=== PATIENT | female | born 1925 | race Caucasian/White ===

== ENCOUNTER 2016-06-23 20:40 | Emergency (ER) | payer MEDICARE, OTHER ==
[~2016-06-23] VITALS: Ht 162.6 cm; Wt 72.7 kg
[2016-06-23 21:01] VITALS: BP 165/130; PULSE 98; RESP 18; O2SAT 96
--- NOTE | 2016-06-23 21:02 | ED.REPORT ---
HPI-Abd Pain F 40 and Over Date of Service Jun 23, 2016 ED Provider: Chavez Landry MD Patient is a 89 year old female with a history of paroxysmal atrial fibrillation and Graves Disease who presents to the ED complaining of vomiting and diarrhea since 9:30pm last night. She reports some mild associated abdominal discomfort. The patient states that her symptoms have not improved over the course of the day and may even have gotten worse. She vomited enroute to the ED. Her daughter states that the patient has felt unwell for several days prior to onset. There is no one else at her assisted living facility that is currently sick with similar symptoms. The patient reports prior hysterectomy , cholecystectomy, and appendectomy. She reports diaphoresis but denies a fever , chills hematemesis, bloody or tarry stools. Nursing Notes Stated Complaint: NAUSEA, ABDOMINAL PAIN Chief Complaint: Female Abdominal Pain Nursing Notes Reviewed: Yes Allergies: Coded Allergies: codeine (Verified Allergy, Unknown, 06/23/16) Uncoded Allergies: PENICILLIN (Allergy, Unknown, 06/23/16) Scheduled PRN Ondansetron ODT (Ondansetron ODT) 8 Mg Tab.rapdis 8 MG PO QID PRN PRN For Nausea General Time Seen by MD: 21:02 Chief Complaint Diarrhea moderate, Vomiting moderate Hx Obtained From: Patient, Daughter, Other family... Arrived By: Walk-in Sudden in Onset?: No Onset Occurred: 21 - 23 hours ago Symptom Duration: Since onset Progression since Onset: Gradually worsening Location: : Diffuse Quality: Painful Severity: Current: Mild Severity: Maximum: Moderate Recent Healthcare: No recent doctor visit, No recent hospitalization Similar Sx Previous: No Past Medical History Past Medical History Notes: Current Medications: per patient Amiodarone and Metoprolol Past Medical History Paroxysmal Atrial fibrillation Graves Disease Past Surgical History thyroidectomy Reports: Appendectomy, Cholecystectomy, Hysterectomy Smoking History Unknown if Ever Smoker Social History Other Social History: Good social support, Lives in [facility], Local resident Ambulatory Status Independent Review of Systems Constitutional: Denies: Fever GI: Reports: Abdominal pain, Diarrhea, Nausea, Vomiting, Denies: Bloody/tarry stool, Hematemesis Complete sys rev & neg: except as marked. Skin: Reports Diaphoresis Physical Exam Vital Signs Vital Signs (First) Date Time Temp Pulse Resp B/P Pulse Ox O2 Delivery O2 Flow Rate FiO2 06/23/16 21:01 36.5 98 18 165/130 96 Room Air Initial VS: Reviewed Head / Eyes: Atraumatic, Normocephalic, PERRL ENT: Mucous membranes moist, Conjunctiva normal, No scleral icterus Neck: Supple Extremities: Vascular intact, Neuro intact, No swelling, No tenderness Skin: Warm, Dry, No cyanosis Neurologic: Alert, Oriented, Nonfocal Psychiatric: Mood/affect normal, Behavior normal, Normal thought content General/Constitutional: Awake, Alert, No acute distress Respiratory / Chest: Breath sounds NL, Breath sounds = bilat, No respiratory distress, No rales, No rhonchi, No wheezing Cardiovascular: Heart rate NL, Regular rhythm, Heart sounds NL, No murmurs Abdomen: Soft, BS normoactive Tenderness/Guarding/Rebound: Positive: Tender diffuse Back: No midline vertebral tend, No CVA tenderness Periorbital: Positive: Proptosis L, Proptosis R Interpretation & Diagnostics Lab Results Interpretation Result Diagram: 06/23/16213106/23/162131 Test 06/23/16 21:32 06/23/16 23:50 White Blood Count 4.8th/mm3 (3.8-10.1) Red Blood Count 4.84mil/mm3 (3.90-5.20) Hemoglobin 15.0g/dL (12.0-15.6) Hematocrit 45.4% (35.0-46.0) Mean Corpuscular Volume 93.8fL (81-100) Mean Corpuscular Hemoglobin 31.0pg (27.0-35.0) Mean Corpuscular Hemoglobin Concent 33.0% (32.0-37.0) Red Cell Distribution Width 14.4% (12.3-15.4) Platelet Count 96bil/L (150-400) Neutrophils (%) (Auto) 87.0% (40-74) Lymphocytes (%) (Auto) 6.8% (14-46) Monocytes (%) (Auto) 5.6% (4-12) Eosinophils (%) (Auto) 0.2% (0-5) Basophils (%) (Auto) 0.2% (0-3) Prothrombin Time 11.9sec (8.1-12.5) Prothromb Time International Ratio 1.11ratio Sodium Level 137mEq/L (134-144) Potassium Level 3.7mEq/L (3.5-5.2) Chloride Level 100mEq/L (97-108) Carbon Dioxide Level 20mmol/L (18-29) Blood Urea Nitrogen 17mg/dL (8-27) Creatinine 0.77mg/dL (0.57-1.00) Estimat Glomerular Filtration Rate 101mL/min (>59) Glucose Level 179mg/dL (60-99) Lactic Acid Level 2.0mmol/L (0.4-2.0) Calcium Level 8.9mg/dL (8.5-10.1) Magnesium Level 2.0mg/dL (1.6-2.6) Total Bilirubin 1.1mg/dL (0.0-1.2) Aspartate Amino Transf (AST/SGOT) 21U/L (0-50) Alanine Aminotransferase (ALT/SGPT) 15U/L (0-32) Alkaline Phosphatase 68U/L (25-165) Total Protein 6.8g/dL (6.4-8.4) Albumin 3.7g/dL (3.4-5.0) Lipase 22U/L (13-60) Digoxin Level 0.3nG/mL (0.9-2.0) Troponin T < 0.010ug/L (0.0-0.011) ECG Interpretation ECG Interpretation: Atrial fibrillation with RVR, Rate 137 RBBB Time: 21:22 Interpreted by: ED physician ECG Interpretation: Sinus rhythm, Rate 70 RBBB Time: 23:03 Interpreted by: ED physician CT Abd / Pelvis Interpretation CONCLUSION: Probable mild gastroenteritis and/or ileus, with fluid levels in the right and transverse colon and mild wall enhancement of the small bowel. Cirrhosis with splenomegaly and mild varices. Presumed hepatic and renal cysts. Status post cholecystectomy with mild dilated CBD, nonspecific, may reflect biliary ectasia. Radiologist: Rimma Rdz MD 06/23/2016 - 11:27:44 PM PDT Study type: Abdominal CT IV contrast Interpretation / Wet Read by: Interpret - Radiologist Re-Eval/Medical Decision Med Decision/Clinical Course 89-year-old presents with nausea and vomiting and diarrhea, stents or gastroenteritis. However, she is in atrial fibrillation with rapid ventricular response and right bundle branch block. She was treated with diltiazem, ultimately with conversion back to sinus rhythm. Troponins were negative 2. EKG still shows right bundle but is much improved and sinus without evidence of infarct. She is much better as far as her nausea after ondansetron. After. Of observation and rule out protocol, she is discharged home for follow-up with her PCP. Prompt return if worse. CT was done to evaluate for ischemic bowel disease in the setting of acute atrial fibrillation. No evidence of this was found. She appears to have gastroenteritis only. Discharged in stable condition. Re-Evaluation/Progress #1: Time of Eval: 22:05 Re-Evaluation/Progress Note: Rechecked the patient. Discussed her EKG findings and plan for CT scan. She was found to be in atrial fibrillation and will be given medication to reduce her rate. Re-Evaluation/Progress #2: Time of Eval: 00:48 Patient Status: Condition improved Re-Evaluation/Progress Note: Rechecked the patient. She has remained in normal sinus rhythm. Her CT scan showed gastroenteritis. Her repeat troponin was negative. Patient understands and agrees with the plan to be discharged home. Discharge instructions and follow-up discussed. All questions were addressed. Return to the ED warnings given. Counseled Regarding: Diagnosis, Lab results, Need for follow-up, When/why to return to ED Discharge & Departure Primary Impression: Atrial fibrillation with RVR Additional Impressions: Nausea and vomiting Vomiting type: unspecified Vomiting Intractability: non-intractable Qualified Code: R11.2 - Nausea with vomiting, unspecified Gastroenteritis Disposition: Home Discharge Condition All VS Reviewed: Yes Condition: Stable Patient Instructions: Atrial Fibrillation (ED), Gastroenteritis (ED) Additional Instructions: Return promptly if you have any chest pain, palpitations, or other new symptoms of concern. Zofran up to four times daily if needed for nausea. Begin with clear fluids such as Powerade or Gatorade, and advance your diet slowly as you tolerate. Progress through soups and simple starchy foods before returning to fats meats and milk. Referrals: Lex Ayoub MD Crit Care Except Billable Proc Time Spent: 30-74 minutes (thirty minutes) Services Performed: Patient management by me, Time spent at bedside, Reviewing test results, Reviewing imaging, Discussing patient care, Documentation in record, Time with fam/surrogate Scribe Attestation Portions of this note were transcribed by Kalyeigh Conn. I, Dr. Landry personally performed the history, physical exam and medical decision-making; I reviewed and confirmed the accuracy of the information in the transcribed note. Signed by: Ekta Allen, 06/24/2016 0052 copies to: Dereck Lira MD; Lex Ayoub MD, Christopher W MD Jun 23, 2016 21:02 Kayleigh Conn Jun 23, 2016 21:12
[2016-06-23] MEDS ORDERED: 0.9% Sodium Chloride 1,000 ML IV ONE (21:07)
[2016-06-23] MEDS ORDERED: Pantoprazole 4 mg/mL 10 mL Inj IVPUSH ONE (21:10)
[2016-06-23] MEDS ORDERED: Ondansetron 2 mg/mL 2 mL Inj IVPUSH ONE (21:10)
[2016-06-23] MEDS ORDERED: Diltiazem 5 mg/mL 5 mL Inj IVPUSH ONE ×2 (21:30→22:35)
[2016-06-23] MEDS ORDERED: Diltiazem Inj 125 MG in 0.9% Sodium Chloride 100 ML, Pharmacy To Mix 1 EA IV SCH (21:30)
[2016-06-23 21:55] LABS: BASOPHILS % (AUTO) 0.2 % (0-3); EOSINOPHILS % (AUTO) 0.2 % (0-5); MONOCYTES % (AUTO) 5.6 % (4-12); Mean Corpuscular Volume 93.8 fL (81-100); Platelet Count 96 bil/L (150-400)
[2016-06-23 21:57] LABS: INR 1.11 ratio
[2016-06-23 22:20] VITALS: BP 134/80; PULSE 154; RESP 18; O2SAT 95
[2016-06-23 22:26] LABS: TROPONIN T < 0.010 ug/L (0.0-0.011)
[2016-06-23 23:09] VITALS: BP 122/49; PULSE 68; RESP 15; O2SAT 94
[2016-06-24] MEDS ORDERED: ONDA8TAB10 PO (00:43)
[2016-06-24] MEDS ORDERED: Ondansetron 2 mg/mL 2 mL Inj IVPUSH ONE (00:50)
[2016-06-24 01:10] VITALS: BP 127/52; RESP 15; O2SAT 97
--- NOTE | 2016-06-24 07:57 | DRSVH ---
PROCEDURE: CT ABDOMEN AND PELVIS WITH CONTRAST ([id number]) INDICATIONS: Abdominal pain, vomiting and diarrhea TECHNIQUE: After the administration of intravenous contrast, 5 mm thick sections acquired from the diaphragm to the symphysis. 5 mm coronal and sagittal reformats were acquired. For radiation dose reduction, the following was used: automated exposure control, adjustment of mA and/or kV according to patient siz e. COMPARISON: None. FINDINGS: Image quality: Excellent. ABDOMEN: Lung bases: Interstitial thickening in lung bases. Lung bases are otherwise clear. Heart size is no rmal. Solid organs: Liver has a nodular contour suggesting cirrhosis. There are numerous indeterminate smal l hepatic hypodensities. The spleen is enlarged measuring 15.7 cm in length. Gallbladder is surgical ly absent. There is mild intrahepatic biliary dilation. Common bile duct is dilated measuring up to 1 3 mm. No obstructive stones or masses are seen in the common bile duct. Pancreas enhances normally. No adrenal nodules. Kidneys demonstrate normal size and enhancement, without hydronephrosis. Small cortical nodules in kidneys are most likely cysts. Peritoneum and bowel: Bowel loops demonstrate normal wall thickness and caliber. Fluid-filled small bowel and colon loops are noted. There are scattered colonic diverticula. No evidence for active div erticulitis. No free fluid or air. Nodes and vessels: No retroperitoneal or mesenteric adenopathy by size criteria. Aorta and inferior vena cava are normal in size. There is moderate aortic calcification consistent with arthrosis. Miscellaneous: No ventral hernias. PELVIS: Genitourinary: Bladder wall thickness is normal. Miscellaneous: No inguinal hernias or adenopathy. Bones: No suspicious bony lesions. No vertebral body compression fractures. There are degenerative and postsurgical changes in lumbar spine. IMPRESSION: 1. Fluid-filled small bowel and colon loops are noted, which is a nonspecific finding and could be se condary to gastroenteritis. Clinical correlation suggested. 2. Nodular contour liver suggesting cirrhosis. 3. Spleen is enlarged. This finding is nonspecific and may be secondary to portal hypertension or ot her etiologies. 4. Colonic diverticulosis. No active diverticulitis. 5. Intrahepatic and extrahepatic biliary dilation. This finding could be related to cholecystectomy. No obstructive stones or masses are identified. Please correlate with serum bilirubin for biliary obs truction. 6. Small indeterminate hypodense nodules in liver and kidneys, too small to further characterize but probably cysts. No significant discrepancy with the security shift manager radiology preliminary report. Dictated by: Jassi Rodgers M.D. on 06/24/2016 at 7:48 Transcribed by: HUMBERTO on 06/24/2016 at 7:57 Approved by: Jassi Rodgers M.D. on 06/24/2016 at 21:25
== END 2016-06-24 00:58 | disposition home or self-care (01) ==
LOC: SED 20:40
DX: I48.91 Unspecified atrial fibrillation (principal); K52.9 Noninfective gastroenteritis and colitis, unspecified; Z88.5 Allergy status to narcotic agent
CPT/HCPCS: 36415; 74177; 80053; 80162; 83605; 83690; 83735; 84484; 85025; 85610; 93005; 96361; 96374; 96375; 96376; 99291; J2405; J7030; Q9967